=== PATIENT | male | born 1980 | race Caucasian/White ===

== ENCOUNTER 2019-03-01 08:51 | Emergency (ER) | payer OTHER ==
[2019-03-01 08:55] VITALS: BP 140/73; PULSE 78; RESP 16; TEMP 97.8
[2019-03-01] MEDS ORDERED: PROPARACAINE 0.5% OPHTH DROPS 15 ML BTL BOTH EYES STA (09:09)
--- NOTE | 2019-03-01 09:24 | ED ---
Eye Problem HPI - General Chief complaint: Eye Problems Stated complaint: FB in eye Source: patient Mode of arrival: ambulatory Limitations: no limitations - History of Present Illness Initial comments: 38-year-old male presenting today for chief complaint of left eye pain x 15 hours. 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 He states he rinsed his eye immediately. Patient states she has had a scratchy sensation since and watering in his eye. Patient states she has had foreign bodies in the past and this feels identical. Patient denies any visual loss. Denies any headache nausea or vomiting. Patient denies any fevers. Patient states he is able to open his eye he denies any significant swelling. Remaining review of system negative. Upon arrival patient appears well there is no acute signs of distress. Patient states tetanus is up-to-date. - Related Data Home Medications Medication Instructions Recorded Confirmed Multivitamins, Thera [Multivitamin 1 tab PO DAILY 03/01/19 03/01/19 (formulary)] Previous Rx's Medication Instructions Recorded Erythromycin Ophth Oint [Romycin 1 applic LEFT EYE QID 3 Days #1 03/01/19 Ophth Oint] tube Allergies Allergy/AdvReac Type Severity Reaction Status Date / Time BEER Allergy Unknown Uncoded 03/01/19 09:02 Review of Systems ROS Statement: Those systems with pertinent positive or pertinent negative responses have been documented in the HPI. ROS Other: All systems not noted in ROS Statement are negative. Past Medical History Past Medical History: No Reported History History of Any Multi-Drug Resistant Organisms: None Reported Past Surgical History: No Surgical Hx Reported Past Psychological History: No Psychological Hx Reported Smoking Status: Current every day smoker Past Alcohol Use History: Occasional Past Drug Use History: None Reported General Exam - General Exam Comments Initial Comments: General: The patient is awake and alert, in no distress, and does not appear acutely ill. Eye: +3 mm pupils are equal, round and reactive to light, extra-ocular movements are intact. No nystagmus. There is normal conjunctiva bilaterally. No signs of icterus. Normal inspection of the lids of the upper eyes. Upon slit lamp examination there is no evidence of obvious foreign body. No cell and flare. Upon fluorescein examination there is no evidence of FB or large corneal abrasion. She states that his symptoms were alleviated by proparacaine. Ears, nose, mouth and throat: There are moist mucous membranes and no oral lesions. Neck: The neck is supple, there is no tenderness or JVD. Cardiovascular: There is a regular rate and rhythm. No murmur, rub or gallop is appreciated. Respiratory: Lungs are clear to auscultation, respirations are non-labored, breath sounds are equal. No wheezes, stridor, rales, or rhonchi. Gastrointestinal: [Soft, non-distended, non-tender abdomen without masses or organomegaly noted. There is no rebound or guarding present. No CVA tenderness. Bowel sounds are unremarkable.] Musculoskeletal: Normal ROM, no tenderness. Strength 5/5. Sensation intact. Pulses equal bilaterally 2+. Neurological: A&O x 3. CN II-XII intact, There are no obvious motor or sensory deficits. Coordination appears grossly intact. Speech is normal. Skin: Skin is warm and dry and no rashes or lesions are noted. Psychiatric: Cooperative, appropriate mood & affect, normal judgment. Limitations: no limitations Course Vital Signs 03/01/19 08:52 Temperature 97.8 F Pulse Rate 78 Respiratory 16 Rate Blood Pressure 140/73 O2 Sat by Pulse 96 Oximetry Medical Decision Making - Medical Decision Making Well appearing 38-year-old male presenting for possible foreign body of the left eye. Patient has been taking previous prescription of Polytrim at home. Starting last night after he felt the foreign body sensation. Examination reveals no evidence of foreign body. Patient denies any other associated symptoms and had relief with proparacaine. The patient may have had a very small corneal abrasion and previous foreign body however healing. There is no significant conjunctival injection. Pupils are normal. Patient will be started on erythemycin ointment and given neurology follow-up. Patient is agreeable care plan as well as discharged today. I discussed the case mentioned by Dr. Olivares was agreeable to plan to discharge. She verbalized understanding importance of ophthalmology follow-up and return parameters. Disposition Clinical Impression: Eye pain, Sensation of foreign body in eye Disposition: HOME SELF-CARE Condition: Good Instructions (If sedation given, give patient instructions): Eye Foreign Body (ED) Additional Instructions: Please use medication as discussed. Please follow-up with ophthalmology within the next 1-2 days Please return to emergency room if the symptoms increase or worsen or for any other concerns. Prescriptions: Erythromycin Ophth Oint [Romycin Ophth Oint] 1 applic LEFT EYE QID 3 Days #1 tube Is patient prescribed a controlled substance at d/c from ED?: No Referrals: None,Stated [Primary Care Provider] - 1-2 days George Browning MD [STAFF PHYSICIAN] - 1-2 days Time of Disposition: 09:24
== END 2019-03-01 09:41 | disposition home or self-care (01) ==
LOC: EC 08:51
DX: H57.12 Ocular pain, left eye (principal); H57.89 Other specified disorders of eye and adnexa; F17.200 Nicotine dependence, unspecified, uncomplicated; Z91.018 Allergy to other foods
CPT/HCPCS: 99283

== ENCOUNTER 2020-03-09 23:14 | Emergency (ER) | payer OTHER ==
[2020-03-09 23:24] VITALS: RESP 18; TEMP 98.4
[2020-03-10] MEDS ORDERED: DIPH,PERTUS(ACELL)TETVAC-LF 0.5 ML VIAL IM ONE (00:42)
[2020-03-10] MEDS ORDERED: LIDOCAINE 1% INJ 10MG/ML (20 ML MDV) SQ ONE (00:42)
[2020-03-10] MEDS ORDERED: IBUPROFEN 600 MG TAB PO STA (00:43)
--- NOTE | 2020-03-10 01:33 | ED ---
Wound/Laceration HPI - General Chief Complaint: Wound/Laceration Stated Complaint: Head lac Time Seen by Provider: 03/09/20 23:53 Source: patient Mode of arrival: ambulatory Limitations: no limitations - History of Present Illness Initial Comments: Patient is a 39-year-old male presenting to the emergency Department with complaints of a laceration to his head. Patient states he stepped on a large tree branch which then broke in half and the end of it flew up and hit him on the left side of his forehead. He denies any loss of consciousness, nausea, vomiting. He states this happened approximately 2 hours ago. He states he does have a mild headache where the tree branch hit him. He denies any changes in vision. He states he does not remember his last tetanus vaccine. The bleeding is controlled with a bandage at this time. There are no further complaints. - Related Data Home Medications Medication Instructions Recorded Confirmed Multivitamins, Thera [Multivitamin 1 tab PO DAILY 03/01/19 03/01/19 (formulary)] Previous Rx's Medication Instructions Recorded Erythromycin Ophth Oint [Romycin 1 applic LEFT EYE QID 3 Days #1 03/01/19 Ophth Oint] tube Review of Systems ROS Statement: Those systems with pertinent positive or pertinent negative responses have been documented in the HPI. ROS Other: All systems not noted in ROS Statement are negative. Past Medical History Past Medical History: No Reported History History of Any Multi-Drug Resistant Organisms: None Reported Past Surgical History: No Surgical Hx Reported Past Psychological History: No Psychological Hx Reported, ADD/ADHD Smoking Status: Current every day smoker Past Alcohol Use History: Occasional Past Drug Use History: Marijuana General Exam - General Exam Comments Initial Comments: GENERAL: Well-appearing, well-nourished and in no acute distress. HEAD: Atraumatic, normocephalic. No hematoma. EYES: Pupils equal round and reactive to light, extraocular movements intact, sclera anicteric, conjunctiva are normal. ENT: TMs normal, nares patent, oropharynx clear without exudates. Moist mucous membranes. NECK: Normal range of motion, supple without lymphadenopathy or JVD. LUNGS: Breath sounds clear to auscultation bilaterally and equal. No wheezes rales or rhonchi. HEART: Regular rate and rhythm without murmurs, rubs or gallops. ABDOMEN: Soft, nontender, normoactive bowel sounds. No guarding, no rebound. No masses appreciated. : Deferred EXTREMITIES: Normal range of motion, no pitting or edema. No clubbing or cyanosis. NEUROLOGICAL: Cranial nerves II through XII grossly intact. Normal speech, normal gait. PSYCH: Normal mood, normal affect. SKIN: Warm, Dry, normal turgor. Patient has a 1 cm L shaped laceration to his left forehead above his eyebrow. There is no active bleeding. Limitations: no limitations Course Vital Signs 03/09/20 03/10/20 23:20 02:11 Temperature 98.4 F Pulse Rate 78 73 Respiratory 18 18 Rate Blood Pressure 149/93 140/86 O2 Sat by Pulse 97 98 Oximetry Procedures - Laceration Laceration #1 Consent Obtained: verbal consent Indication: laceration Site: face (Left forehead, above the eyebrow) Size (cm): 1 (L shaped) Description: flap Depth: simple, single layer Anesthetic Used: lidocaine 1% Anesthesia Technique: local infiltration Amount (mls): 3 Pre-repair: irrigated extensively Type of Sutures: nylon Size of Sutures: 5-0 Number of Sutures: 3 Technique: simple, interrupted Patient Tolerated Procedure: well Medical Decision Making - Medical Decision Making Patient is a 39-year-old male presenting with a 1 cm, L-shaped laceration to his left forehead, above his eyebrow from a tree branch. There is no loss of consciousness, his exam is unremarkable except for this injury. Patient's wound was cleaned, closed with 3, 5-0 sutures. Patient tolerate procedure well. He will have sutures removed in 7-10 days. He is stable for discharge. Patient is agreeable with this plan of care. Case discussed with Dr. Mann. Disposition Clinical Impression: Laceration of forehead Disposition: HOME SELF-CARE Condition: Stable Instructions (If sedation given, give patient instructions): Care For Your Stitches (ED) Additional Instructions: Please return to the Emergency Department if symptoms worsen or any other concerns. Stitches need to be removed in 7-10 days. Keep wound clean and dry. No swimming. Is patient prescribed a controlled substance at d/c from ED?: No Referrals: Luis Nassar MD [Primary Care Provider] - 1-2 days
[2020-03-10 02:12] VITALS: BP 140/86; PULSE 73
== END 2020-03-10 02:12 | disposition home or self-care (01) ==
LOC: EC 23:14
DX: S01.81XA Laceration without foreign body of other part of head, initial encounter (principal); F17.200 Nicotine dependence, unspecified, uncomplicated; W22.8XXA Striking against or struck by other objects, initial encounter; Z23 Encounter for immunization
CPT/HCPCS: 90715; 12011; 99282; 90471; J2001

== ENCOUNTER 2023-04-18 11:50 | Emergency (ER) | payer OTHER ==
[2023-04-18 11:57] VITALS: RESP 18
--- NOTE | 2023-04-18 13:15 | XR ---
EXAMINATION TYPE: XR shoulder complete LT DATE OF EXAM: 04/18/2023 CLINICAL HISTORY: pain COMPARISON: NONE TECHNIQUE: Three views of the left shoulder are obtained. FINDINGS: There is no acute fracture/dislocation evident. The acromioclavicular and glenohumeral jorge alberto int spaces appear mild degenerative narrowing left AC joint.. The visualized ribs are intact and unr emarkable. IMPRESSION: 1. There is no acute fracture or dislocation. ICD 10 NO FRACTURE, INITIAL EVALUATION
--- NOTE | 2023-04-18 13:38 | US ---
EXAMINATION TYPE: US extremity nonvasc mass LT DATE OF EXAM: 04/18/2023 COMPARISON: NONE CLINICAL INDICATION: Male, 42 years old with history of Left shoulder bump; TECHNIQUE: FINDINGS: Scanning was performed directly over lump left shoulder as well as the right side for comp arison purposed. No fluid collection or mass is identified. No definite abnormality is appreciated by ultrasound. IMPRESSION: At the site of clinical concern no distinct abnormal fluid collection is seen. No eviden ce for mass. If symptoms persist consider MRI.
[2023-04-18] MEDS ORDERED: methylPREDNISolone SOD SUCCI 125 MG/2 ML VIAL IM ONE (14:02)
[2023-04-18] MEDS ORDERED: ACET/COD 300 MG/30 MG STARTER PACK 6 TAB BTL PO STA (14:05)
--- NOTE | 2023-04-18 14:05 | ED ---
Extremity Problem HPI - General Chief complaint: Extremity Problem,Nontraumatic Stated complaint: Left Shoulder Injury Time Seen by Provider: 04/18/23 12:21 Source: patient, RN notes reviewed Mode of arrival: ambulatory Limitations: no limitations - History of Present Illness Initial comments: This is a 42-year-old male who presents to the emergency department for a left shoulder lump. Patient states that this has been there for 4 years, however over the last few days it has started to cause pain and numbness in the extremity. States that it is painful to sleep on the arm. The lump itself is not painful, however it is painful to touch just below this area. He has never had this evaluated. Denies any fevers, chills, sore throat, cough, dyspnea, chest pain, palpitations, abdominal pain, nausea, vomiting, diarrhea, back pain, or headaches. - Related Data Home Medications Medication Instructions Recorded Confirmed Multivitamins, Thera [Multivitamin 1 tab PO DAILY 03/01/19 03/01/19 (formulary)] Previous Rx's Medication Instructions Recorded Erythromycin Ophth Oint [Romycin 1 applic LEFT EYE QID 3 Days #1 03/01/19 Ophth Oint] tube predniSONE 50 mg PO DAILY 5 Days #5 tab 04/18/23 Allergies Allergy/AdvReac Type Severity Reaction Status Date / Time No Known Allergies Allergy Verified 04/18/23 11:57 Review of Systems ROS Statement: Those systems with pertinent positive or pertinent negative responses have been documented in the HPI. ROS Other: All systems not noted in ROS Statement are negative. Past Medical History Past Medical History: No Reported History History of Any Multi-Drug Resistant Organisms: None Reported Past Surgical History: No Surgical Hx Reported Past Psychological History: No Psychological Hx Reported, ADD/ADHD Smoking Status: Current every day smoker Past Alcohol Use History: Occasional Past Drug Use History: Marijuana General Exam Limitations: no limitations General appearance: alert, in no apparent distress Head exam: Present: atraumatic, normocephalic, normal inspection Respiratory exam: Present: normal lung sounds bilaterally. Absent: respiratory distress, wheezes, rales, rhonchi, stridor Cardiovascular Exam: Present: regular rate, normal rhythm, normal heart sounds. Absent: systolic murmur, diastolic murmur, rubs, gallop, clicks Extremities exam: Present: other (Possible 1-2 cm palpable, firm, and mobile lump near the AC joint. No tenderness to the lump itself. Just inferior to the lump there is notable tenderness. 2+ radial pulses. Capillary refill less than 1 second.) Neurological exam: Present: alert, oriented X3, CN II-XII intact Psychiatric exam: Present: normal affect, normal mood Skin exam: Present: warm, dry, intact, normal color. Absent: rash Course Vital Signs 04/18/23 04/18/23 11:55 14:21 Temperature 98.5 F 97.9 F Pulse Rate 75 77 Respiratory 18 18 Rate Blood Pressure 159/86 140/82 O2 Sat by Pulse 99 99 Oximetry Medical Decision Making - Medical Decision Making This is a 42-year-old male who presents to the emergency department for a lump to the left arm. Was pt. sent in by a medical professional or institution? @ -No Did you speak to anyone other than the patient for history? @ -No Did you review nursing and triage notes? @ -Yes, and I agree, it is accurate with regards to the patient's symptoms. Were old charts reviewed? @ -No Differential Diagnosis? @ -Differential Arm Lump: Bony growth, lipoma, malignancy, injury, this is not meant to be an all- inclusive list. EKG interpreted by me (3pts min.)? @ -Not obtained X-rays interpreted by me (1pt min.)? @ -X-ray of the left shoulder obtained. My interpretation identifies no acute fractures. CT interpreted by me (1pt min.)? @ -Not obtained U/S interpreted by me (1pt. min.)? @ -Not interpreted by me What testing was considered but not performed? (CT, X-rays, U/S, labs)? Why? @ -None What meds were considered but not given? Why? @ -None Did you discuss the management of the patient with other professionals? @ -No Did you reconcile home meds? @ -No Was smoking cessation discussed for >3mins.? @ -No Was critical care preformed (if so, how long)? @ -No Were there social determinants of health that impacted care today? How? (Homelessness, low income, unemployed, alcoholism, drug addiction, transportation, low edu. Level, literacy, decrease access to med. care, care home, rehab)? @ -No Was there de-escalation of care discussed even if they declined? (Discuss DNR or withdrawal of care, Hospice)? @ -No What co-morbidities impacted this encounter? (DM, HTN, Smoking, COPD, CAD, Cancer, CVA, Hep., AIDS, mental health diagnosis, sleep apnea, morbid obesity)? @ -None Was patient admitted / discharged? @ -Discharged. Ultrasound of the affected area obtained, however there was nothing identified. X-ray of the left shoulder obtained as well, revealing no acute process, however there is mild degenerative narrowing of the left AC joint. It is not entirely clear if his symptoms are related to the bump or something else, especially as there is no pain in the lump itself. The description of his symptoms is also similar to a radiculopathy. Will trial the patient on a course of steroids. Rx for Prednisone provided with dosing instructions reviewed. Information for orthopedic follow up provided for further evaluation as well. Undiagnosed new problem with uncertain prognosis? @ -None Drug Therapy requiring intensive monitoring for toxicity (Heparin, Nitro, Insulin, Cardizem)? @ -None Were any procedures done? @ -None Diagnosis/symptom? @ -Left arm pain Acute, or Chronic, or Acute on Chronic? @ -Acute Uncomplicated (without systemic symptoms) or Complicated (systemic symptoms)? @ -Uncomplicated Side effects of treatment? @ -None Exacerbation, Progression, or Severe Exacerbation] @ -Not applicable Poses a threat to life or bodily function? @ -No Return precautions reviewed in depth, the patient is instructed to return to the emergency department with any new, worsening, or concerning symptoms. Patient verbalized understanding. This case was discussed in detail with the attending ED physician, Dr. Kowalski. Presentation, findings, and treatment plan discussed in detail as well. - Radiology Data Radiology results: report reviewed, image reviewed Disposition Clinical Impression: Left cervical radiculopathy, Lump of skin of left upper extremity Disposition: HOME SELF-CARE Instructions (If sedation given, give patient instructions): Cervical Radiculopathy (ED) Additional Instructions: Return to the emergency department with any new, worsening, or concerning symptoms. Take the prednisone daily for 5 days. You may take this with Tylenol for additional management of your symptoms. Contact orthopedics as listed below for a follow-up appointment and reevaluation of ongoing symptoms. Follow up with your primary care provider in 1-2 days. Prescriptions: predniSONE 50 mg PO DAILY 5 Days #5 tab Is patient prescribed a controlled substance at d/c from ED?: No Referrals: None,Stated [Primary Care Provider] - 1-2 days Marcelo Cardoso MD [STAFF PHYSICIAN] - 1-2 days
[2023-04-18 14:22] VITALS: BP 140/82; PULSE 77; TEMP 97.9
== END 2023-04-18 14:23 | disposition home or self-care (01) ==
LOC: EC 11:50
DX: M54.12 Radiculopathy, cervical region (principal); R22.32 Localized swelling, mass and lump, left upper limb; F17.200 Nicotine dependence, unspecified, uncomplicated; F12.90 Cannabis use, unspecified, uncomplicated
CPT/HCPCS: 99284; 96372; 73030; 76882; J2930

== ENCOUNTER → 2025-04-08 | Outpatient (CLI) | payer OTHER ==
--- NOTE | 2025-04-08 14:44 | XR ---
EXAMINATION TYPE: XR ribs LT w pa chest xray DATE OF EXAM: 04/08/2025 COMPARISON: NONE CLINICAL INDICATION: Male, 44 years old with history of S29.9XXA UNSPECIFIED INJURY OF THORAX, INITIA L ENC; TECHNIQUE: Frontal view of the chest and 4 views of the left ribs submitted. FINDINGS: Lungs are clear. No consolidation or pleural effusion. There is no pneumothorax. Heart size normal. Mild hyperexpansion of the lungs. Rib cage appears to be intact. No acute displaced rib frac ture. IMPRESSION: No acute displaced rib fracture. [facility], , 04/08/2025 2:42 PM
== END | disposition home or self-care (01) ==
LOC: RADXRMAIN 11:58
PROVIDERS: ATTEND Family Medicine
DX: S29.9XXA Unspecified injury of thorax, initial encounter (principal); X58.XXXA Exposure to other specified factors, initial encounter